=== PATIENT | male | born 1995 | race American Indian/Alaskan Native ===

== ENCOUNTER 2020-05-11 13:13 | Emergency (ER) | payer MEDICAID ==
[~2020-05-11] VITALS: Ht 177.8 cm; Wt 68.2 kg
[2020-05-11 13:27] VITALS: BP 112/64
[2020-05-11] MEDS ORDERED: triamcinolone acetonide 40mg/ml inj IM ONE (14:50)
[2020-05-11] MEDS ORDERED: DEC1T PO ×2 (14:52→15:17)
== END 2020-05-11 15:18 | disposition home or self-care (01) ==
LOC: ER 13:13
DX: L23.9 Allergic contact dermatitis, unspecified cause (principal); Z79.899 Other long term (current) drug therapy; Z59.0 Homelessness
CPT/HCPCS: 96372; 99283; J3301

== ENCOUNTER 2020-05-24 18:47 | Emergency (ER) | payer BC, MEDICAID ==
[~2020-05-24] VITALS: Ht 177.8 cm; Wt 61.4 kg
[~2020-05-24 18:47] MED LIST: DEC1T PO
[2020-05-24 19:06] VITALS: BP 126/67
[2020-05-24] MEDS ORDERED: rabies immune globulin/PF 150 unit/ml inj IMVAC STA (19:26)
[2020-05-24] MEDS ORDERED: rabies vaccine (PCEC)/PF 2.5 unit kit IMVAC ONE (19:30)
[2020-05-24] MEDS ORDERED: AMOX-117 PO (19:31)
== END 2020-05-24 21:39 | disposition home or self-care (01) ==
LOC: ER 18:51
DX: S51.812A Laceration without foreign body of left forearm, initial encounter (principal); Z20.3 Contact with and (suspected) exposure to rabies; Z79.2 Long term (current) use of antibiotics; Z79.899 Other long term (current) drug therapy; W54.0XXA Bitten by dog, initial encounter; Y93.89 Activity, other specified; Y92.89 Other specified places as the place of occurrence of the external cause; Y99.8 Other external cause status
CPT/HCPCS: 90375; 90471; 90472; 90675; 96372; 99284

== ENCOUNTER 2020-10-13 14:46 | Emergency (ER) | payer BC ==
[~2020-10-13] VITALS: Ht 177.8 cm; Wt 63.6 kg
[2020-10-13 15:39] LABS: BASOPHILS # (AUTO) 0.1 X10'3 (0-0.2); BASOPHILS % (AUTO) 0.6 % (0-1); EOSINOPHILS # (AUTO) 0.1 X10'3 (0-0.9); EOSINOPHILS % (AUTO) 1.7 % (0-6); HEMATOCRIT 47.7 % (42.0-52.0); LYMPHOCYTES # (AUTO) 1.6 X10'3 (1.1-4.8); LYMPHOCYTES % (AUTO) 18.1 % (21-51); MEAN CORPUSCULAR HEMOGLOBIN 31.5 PG (27.0-31.0); MEAN CORPUSCULAR HGB CONC 33.4 g/dL (33.0-36.5); MEAN CORPUSCULAR VOLUME 94.1 FL (78-98); MEAN PLATELET VOLUME 7.9 FL (7.4-10.4); MONOCYTES # (AUTO) 1.2 X10'3 (0-0.9); MONOCYTES % (AUTO) 14.2 % (2-12); NEUTROPHILS # (AUTO) 5.7 X10'3 (1.8-7.7); NEUTROPHILS % (AUTO) 65.4 % (42-75); PLATELET COUNT 327 X10'3 (140-440); RED BLOOD COUNT 5.07 X10'6 (4.70-6.10); RED CELL DISTRIBUTION WIDTH 12.9 % (11.5-14.5); WHITE BLOOD COUNT 8.8 X10'3 (4.5-11.0)
[2020-10-13 15:58] VITALS: BP 109/78
[2020-10-13 15:59] LABS: ALANINE AMINOTRANSFERASE 247 U/L (12-78); ALBUMIN/GLOBULIN RATIO 0.9 (1.1-1.5); ALKALINE PHOSPHATASE 131 IU/L (46-116); ANION GAP 9 (8-16); ASPARTATE AMINO TRANSFERASE 87 U/L (10-37); BILIRUBIN,TOTAL 0.4 MG/DL (0.1-1.0); BLOOD UREA NITROGEN 10 MG/DL (7-18); BUN/CREATININE RATIO 10.9 (5.4-32.0); CALCIUM 8.6 MG/DL (8.5-10.1); CHLORIDE 103 MMOL/L (99-107); CREATININE 0.92 MG/DL (0.60-1.10); GLUCOSE 86 MG/DL (70-104); POTASSIUM 3.8 MMOL/L (3.5-5.1); SODIUM 140 MMOL/L (135-145); TOTAL CARBON DIOXIDE 27.9 MMOL/L (24-32); TOTAL PROTEIN 8.7 G/DL (6.4-8.2); eGFR > 90 ML/MIN
[2020-10-13] MEDS ORDERED: BENZ-16 PO (16:42)
[2020-10-13] MEDS ORDERED: ALBU8HFA PO (16:42)
== END 2020-10-13 16:55 | disposition home or self-care (01) ==
LOC: ER 14:46
DX: J06.9 Acute upper respiratory infection, unspecified (principal); Z20.822 Contact with and (suspected) exposure to COVID-19; R50.9 Fever, unspecified; R09.81 Nasal congestion; R05 Cough; R11.2 Nausea with vomiting, unspecified; Z79.899 Other long term (current) drug therapy
CPT/HCPCS: 36415; 71045; 80053; 85025; 87635; 99284; C9803

== ENCOUNTER 2020-12-24 12:54 | Emergency (ER) | payer BC, MEDICAID ==
[~2020-12-24] VITALS: Ht 177.8 cm; Wt 65.9 kg
[2020-12-24] MEDS ORDERED: NALO4SPR BOTHNARES (15:18)
[2020-12-24 17:12] VITALS: BP 105/53
== END 2020-12-24 17:16 | disposition home or self-care (01) ==
LOC: ER 12:55
DX: T40.604A Poisoning by unspecified narcotics, undetermined, initial encounter (principal); F19.90 Other psychoactive substance use, unspecified, uncomplicated; Z79.899 Other long term (current) drug therapy; Y92.89 Other specified places as the place of occurrence of the external cause
CPT/HCPCS: 71045; 93005; 99283

== ENCOUNTER 2021-03-18 16:06 | Emergency (ER) | payer BC, MEDICAID ==
[~2021-03-18 16:06] MED LIST changes: +NALO4SPR BOTHNARES
== END 2021-03-18 20:08 | disposition left against medical advice (07) ==
LOC: ER 16:07
DX: L08.9 Local infection of the skin and subcutaneous tissue, unspecified (principal); Z53.21 Procedure and treatment not carried out due to patient leaving prior to being seen by health care provider

== ENCOUNTER 2021-03-26 20:21 | Emergency (ER) | payer BC ==
[~2021-03-26] VITALS: Ht 177.8 cm; Wt 67.8 kg
[2021-03-26 21:33] VITALS: BP 125/82
[2021-03-27] MEDS ORDERED: clindamycin 150mg capsule PO ONE (01:35)
[2021-03-27] MEDS ORDERED: CLIN300C63 PO (01:38)
[2021-03-27] MEDS ORDERED: BICT1TAB3 PO (01:38)
== END 2021-03-27 01:48 | disposition home or self-care (01) ==
LOC: ER 20:22
DX: L03.115 Cellulitis of right lower limb (principal); F15.90 Other stimulant use, unspecified, uncomplicated; Z86.19 Personal history of other infectious and parasitic diseases; Z21 Asymptomatic human immunodeficiency virus [HIV] infection status; Z59.00 Homelessness unspecified; Z79.2 Long term (current) use of antibiotics; Z79.899 Other long term (current) drug therapy
CPT/HCPCS: 99283